=== PATIENT | male | born 2000 | race Caucasian/White ===

== ENCOUNTER 2025-04-17 15:15 | Emergency (ER) | payer OTHER, SELFPAY ==
--- NOTE | 2025-04-17 15:17 | ED.GENADULT ---
HPI - General Adult General Chief complaint: Asthma Stated complaint: Asthma Time Seen by Provider: 04/17/25 15:16 Source: patient Mode of arrival: ambulatory Limitations: no limitations History of Present Illness HPI narrative: Pt is a 24 y/o male presenting with c/o asthma. He reports congestion, cough the last few mornings. Reports wheezing with coughing fits. Called his PCP however, since he has not seen them in over 3 years, they would not send in refill on albuterol. He deneis any constitutional sx. No tx initiated [employer] [employer] [facility]. No known exposure to COVID, FLU, STREP, PNA. No additional complaints. Related Data Home Medications ?Medication ?Instructions ?Recorded ?Confirmed ?Last Taken ?Type fluoxetine 20 mg capsule (Prozac) 20 mg PO DAILY 02/24/22 04/17/25 Unknown History methylphenidate HCl 54 mg 54 mg PO QAM 02/24/22 04/17/25 Unknown History tablet,extended release 24 hr (Concerta) Allergies Allergy/AdvReac Type Severity Reaction Status Date / Time No Known Allergies Allergy Mild Verified 04/17/25 15:25 Review of Systems Review of Systems: CONSTITUTIONAL: Denies body aches, fever, chills, or sweats. EYES: Denies visual changes, redness, or discharge. ENT: Reports rhinorrhea, congestion, denies sore throat, or otalgia. CARDIOVASCULAR: Denies chest pain, palpitations, or edema. RESPIRATORY: reports cough, wheezing, denies dyspnea. GASTROINTESTINAL: Denies abdominal pain, nausea, vomiting, or diarrhea. GENITOURINARY: Denies dysuria or hematuria. SKIN: Denies rash, itching, or wounds. MUSCULOSKELETAL: Denies back pain, joint pain, or myalgia. NEUROLOGIC: Denies headache, numbness, tingling, or weakness. PSYCH: Denies depression or anxiety. All systems reviewed & are unremarkable except as noted in HPI and below PMFSH Past Medical History Medical History (Updated 04/17/25 @ 15:28 by Ravinder Patel APRN) ADHD Encounter to establish care Anxiety Asthma Allergies Family History Family History (Updated 02/24/22 @ 14:41 by Katherine Vann [facility]) Father Depression Anxiety Grandparent Lung cancer Diabetes mellitus Heart disease Grandparent Lupus Social History Social History (Updated 02/24/22 @ 14:49 by [facility] Smoking status: Never smoker Alcohol intake: never Substance use: never Substance use type: does not use Lack of Transportation: No Lack of Food: Never True Current Housing: I Have Housing Concerned About Future Housing: No Difficulty Paying Gas/Electric Bills: No Difficulty Paying for Meds: No Currently Unemployed: No Education: High School Diploma/GED Difficulty w/ Childcare or Family Care: No Exam Narrative: GENERAL: Well-appearing, well-nourished, and in no acute distress. HEAD: Normocephalic, atraumatic. EYES: EOMI. No redness or drainage. Conjunctivae normal. ENT: Mucous membranes pink and moist. Nares clear. No rhinorrhea. TMs normal bilaterally. Throat normal. Uvula midline. Voice is normal NECK: Normal AROM. Supple. No lymphadenopathy. CHEST: No respiratory distress. Clear to auscultation. Normal air movement. Speaking in complete sentences without difficulty. HEART: Regular rate and rhythm. No murmur appreciated. Normal peripheral pulses. EXTREMITIES: Normal range of motion. SKIN: Warm, dry, no rash. Capillary refill normal. Normal skin turgor. NEURO: No focal deficits. Alert and oriented x3. Gait steady. PSYCH: Normal affect. No signs of depression or anxiety. Course Course Emergency Course: declined POC testing--stating he just wants a refill on his albuterol inhaler. Level of Care: Express Care Visit MDM Differential Diagnosis Differential Diagnosis: asthma exacerbation, viral URI, PNA, bronchitis Discharge Plan Discharge Clinical Impression: Asthma, Encounter for medication refill, Upper respiratory infection Patient Disposition: Home Condition: Stable Instructions: Asthma (ED) Additional Instructions: Go straight to ER should your symptoms become worse or should any new symptoms develop Patient Language: [place] Prescriptions: New albuterol sulfate [Ventolin HFA] 90 mcg/actuation HFA aerosol inhaler 2 puff inhalation QID PRN (Reason: shortness of breath or wheezing) Qty: 8.5 0RF No Action fluoxetine [Prozac] 20 mg capsule 20 mg PO DAILY Rx Instructions: per psychiatrist methylphenidate HCl [Concerta] 54 mg tablet extended release 24hr 54 mg PO QAM Rx Instructions: per psychiatrist Follow-up/Referrals: Pavithra Davis APRN [Advanced Practice Nurse, Family Practice] - 04/18/25 Time of Disposition: 15:28
[2025-04-17 15:30] VITALS: BP 111/66; PULSE 73; RESP 16; TEMP 36.9; O2SAT 100
== END 2025-04-17 15:31 | disposition home or self-care (01) ==
PROVIDERS: Emergency Provider Registered Nurse
DX: J45.909 Unspecified asthma, uncomplicated (principal); Z76.0 Encounter for issue of repeat prescription; J06.9 Acute upper respiratory infection, unspecified; F90.9 Attention-deficit hyperactivity disorder, unspecified type; F41.9 Anxiety disorder, unspecified
CPT/HCPCS: 99211; G0463